=== PATIENT | female | born 1955 | race Asian ===

== ENCOUNTER 2016-06-22 07:40 | Outpatient (CLI) | payer OTHER ==
[2016-06-22 08:28] LABS: PLATELET COUNT 264 K/uL (152-353)
== END 2016-06-22 19:29 | disposition home or self-care (01) ==
LOC: MAMMO 07:40
PROVIDERS: Nurse Practitioner
DX: Z12.31 Encounter for screening mammogram for malignant neoplasm of breast (principal); R73.9 Hyperglycemia, unspecified; I10 Essential (primary) hypertension; R53.83 Other fatigue; E78.00 Pure hypercholesterolemia, unspecified; E55.9 Vitamin D deficiency, unspecified
CPT/HCPCS: 36415; 80053; 80061; 82306; 83036; 84443; 85027; G0202-TC

== ENCOUNTER 2017-06-24 12:43 | Inpatient (IN) | payer OTHER ==
[~2017-06-24] VITALS: Ht 162.6 cm; Wt 123.6 kg
[2017-06-24] VITALS (11 sets, daily range): BP systolic 139–223; BP diastolic 54–96; TEMP 97.3–98.7; Ht 162.6 cm; Wt 123.6 kg
[2017-06-24] MEDS ORDERED: MICROZIDE12.5 MG PO (12:54)
[2017-06-24] MEDS ORDERED: METOPROLOL25 M1 PO (12:55)
[2017-06-24] MEDS ORDERED: COLC0.6T6 PO (12:56)
[2017-06-24] MEDS ORDERED: AVALIDE1 TA1 PO (12:56)
[2017-06-24 13:30] LABS: PLATELET COUNT 319 K/uL (152-353)
[2017-06-24 13:44] LABS: POTASSIUM 3.4 mmol/L (3.6-5.2)
[2017-06-24 14:05] LABS: PARTIAL THROMBOPLASTIN TIME 22.4 SECONDS (24.5-33.6)
[2017-06-25] VITALS (13 sets, daily range): BP systolic 138–187; BP diastolic 50–76; TEMP 97.9–98.7
[2017-06-26 04:00] VITALS: BP 158/69; TEMP 98.7
[2017-06-26 08:00] VITALS: BP 171/61; TEMP 98.3
[2017-06-26 12:00] VITALS: BP 173/58; TEMP 98.5
[2017-06-26 16:00] VITALS: BP 160/55; TEMP 98.4
[2017-06-26 20:00] VITALS: BP 172/52; TEMP 98.5
[2017-06-27] VITALS: BP 184/73; TEMP 98.4
[2017-06-27 04:00] VITALS: BP 188/74; TEMP 99
[2017-06-27 08:07] VITALS: BP 188/67; TEMP 98.3
[2017-06-27 11:28] VITALS: BP 179/64; TEMP 98.2
[2017-06-27 16:00] VITALS: BP 162/56; TEMP 98.2
[2017-06-27 20:00] VITALS: BP 183/53; TEMP 98.5
[2017-06-28] VITALS: BP 174/56; TEMP 98.8
[2017-06-28 04:00] VITALS: BP 156/64; TEMP 98
[2017-06-28 08:01] VITALS: BP 188/90; TEMP 98.2
[2017-06-28 12:00] VITALS: BP 166/62; TEMP 98.5
== END 2017-06-28 14:05 | disposition home or self-care (01) | DRG 301 ==
LOC: ED 12:43 → MED/SURG 14:45 → ICU 14:45 → MED/SURG 06-25 10:45
DX: I82.411 Acute embolism and thrombosis of right femoral vein (principal); M54.2 Cervicalgia; M25.512 Pain in left shoulder; M10.9 Gout, unspecified; E11.9 Type 2 diabetes mellitus without complications; I10 Essential (primary) hypertension; M15.8 Other polyosteoarthritis; Z79.01 Long term (current) use of anticoagulants; Z96.653 Presence of artificial knee joint, bilateral
CPT/HCPCS: 36415; 80053; 85027; 85379; 85610; 85730; 96372; 99284; J1650; J2270; J3490

== ENCOUNTER 2018-01-14 04:28 | Inpatient (IN) | payer OTHER ==
[2018-01-14] VITALS (24 sets, daily range): BP systolic 128–219; BP diastolic 63–136; TEMP 97.9–98.1; Ht 162.6 cm; Wt 116.3 kg
[~2018-01-14] VITALS: Ht 162.6 cm; Wt 116.3 kg
[~2018-01-14 04:28] MED LIST: AVALIDE1 TA1 PO; COLC0.6T6 PO; METOPROLOL25 M1 PO; MICROZIDE12.5 MG PO
[2018-01-14 06:30] LABS: PLATELET COUNT 278 K/uL (152-353)
[2018-01-14 06:40] LABS: POTASSIUM 3.6 mmol/L (3.6-5.2); SODIUM 142 mmol/L (136-145)
[2018-01-14 06:44] LABS: PARTIAL THROMBOPLASTIN TIME 20.5 SECONDS (24.5-33.6)
[2018-01-15] VITALS (21 sets, daily range): BP systolic 124–184; BP diastolic 60–81; TEMP 98.1–989
[2018-01-15 10:45] LABS: PLATELET COUNT 291 K/uL (152-353)
[2018-01-15 10:56] LABS: POTASSIUM 4.3 mmol/L (3.6-5.2)
[2018-01-16] VITALS (11 sets, daily range): BP systolic 170–199; BP diastolic 64–98; TEMP 99–100.2
[2018-01-17 00:09] VITALS: BP 142/69; TEMP 100
[2018-01-17 04:00] VITALS: BP 178/73; TEMP 98.9
[2018-01-17 08:17] LABS: POTASSIUM 8.6 mmol/L (3.6-5.2)
== END 2018-01-17 09:00 | disposition expired | DRG 66 ==
LOC: ED 04:28 → ICU 08:00 → MED/SURG 01-16 14:30
PROVIDERS: Family Medicine; ADMIT Internal Medicine
DX: I63.8 Other cerebral infarction (principal); I10 Essential (primary) hypertension; M10.9 Gout, unspecified; R53.1 Weakness; R26.89 Other abnormalities of gait and mobility
CPT/HCPCS: 31500; 36415; 51702; 80053; 81000; 82550; 82553; 83605; 84484; 85027; 85610; 85730; 87070; 87077; 87185; 87186; 87205; 92950; 93005; 94760; 99285; C1751; J0171; J0282; J0360; J0461; J1885; J2060; J2270; J2405; J3370; J3490